=== PATIENT | female | born 1995 | race African-American/Black ===

== ENCOUNTER 2018-11-04 09:16 | Emergency (ER) | payer OTHER ==
[~2018-11-04] VITALS: Ht 167.6 cm; Wt 92.0 kg
[2018-11-04 09:21] VITALS: BP 131/85
[2018-11-04 11:32] LABS: BASOPHILS % 0.4 % (0.0-2.0); EOSINOPHILS % 2.3 % (0.0-5.0); HEMATOCRIT. 32.9 % (36.0-48.0); HEMOGLOBIN. 10.4 g/dL (12.0-16.0); LYMPHOCYTES % 25.9 % (20.0-50.0); MEAN CORPUSCULAR HEMOGLOBIN 21.9 pg (28.0-32.0); MEAN CORPUSCULAR VOLUME 69.1 fL (81.0-99.0); MEAN PLATELET VOLUME 10.1 fl (7.4-10.4); MONOCYTES % 6.6 % (2.0-8.0); NEUTROPHILS % 64.8 % (40.0-76.0); PLATELET 339 x1000/uL (130-400); RED BLOOD CELL COUNT 4.76 mill/uL (4.2-5.4); RED CELL DISTRIBUTION WIDTH 18.4 % (11.6-14.6)
[2018-11-04 11:39] LABS: CHLORIDE 107 mEq/L (98-107)
[2018-11-04 11:54] LABS: B-HCG QUANTITATIVE < 1 mIU/mL (<3)
[2018-11-04 12:03] LABS: PLATELET ESTIMATE NORMAL
== END 2018-11-04 13:50 | disposition home or self-care (01) ==
LOC: ER 09:16
DX: N93.8 Other specified abnormal uterine and vaginal bleeding (principal); I10 Essential (primary) hypertension; Z87.440 Personal history of urinary (tract) infections; Z87.09 Personal history of other diseases of the respiratory system
CPT/HCPCS: 36415; 76830; 76856; 80053; 84702; 85025; 99284; Z7610

== ENCOUNTER 2022-07-14 05:00 | Emergency (ER) | payer OTHER ==
[~2022-07-14] VITALS: Ht 162.6 cm; Wt 137.0 kg
[2022-07-14 05:14] VITALS: BP 152/87
[2022-07-14] MEDS ORDERED: ONDANSETRON 4MG ODT PO STA (05:42)
[2022-07-14] MEDS ORDERED: ACETAMINOPHEN 325MG TABLET PO STA (05:42)
[2022-07-14] MEDS ORDERED: MAGNESIUM/ALUMINUM HYDROXIDE/SIMETHICONE 30ML UDC PO STA (05:42)
== END 2022-07-14 05:27 | disposition left against medical advice (07) ==
LOC: ER 05:00
DX: Z53.21 Procedure and treatment not carried out due to patient leaving prior to being seen by health care provider (principal)